=== PATIENT | male | born 1965 | race Caucasian/White ===

== ENCOUNTER 2017-06-08 16:05 | Emergency (ER) | payer SELFPAY ==
--- NOTE | 2017-06-08 18:06 | ER Document Report ---
ED Medical Screen (RME) - General Chief Complaint: Urinary Problem Stated Complaint: ABDOMINAL PAIN Time Seen by Provider: 06/08/17 18:02 Notes: Patient is saying he is having pain in the lower center abdomen. It began Monday and continues almost constantly since then. He is not nauseated or vomiting, but has had some diarrhea since the onset of the pain on Monday. He has noticed some black-looking stools, though no colin blood. No Pepto-Bismol. Has never had pain like this before. No history of kidney stones. He has not been constipated. Has never been told he has diverticulitis, colitis, regional enteritis, or any of the other gastrointestinal infectious diseases. Has not noted a fever, but has had some sweats, especially this afternoon. Only abdominal surgery was for an umbilical hernia 15 years ago. Has had coronary artery stents put in. Currently on no prescription medicines. TRAVEL OUTSIDE OF THE [place] IN LAST 30 DAYS: No - Related Data Allergies/Adverse Reactions: No Known Allergies Allergy (Verified 06/08/17 16:14) Past Medical History - Social History Chew tobacco use (# tins/day): No Frequency of alcohol use: Occasional Drug Abuse: None - Past Medical History Cardiac Medical History: Reports: Hx Coronary Artery Disease, Hx Heart Attack - 3 years ago, Hx Hypercholesterolemia Renal/ Medical History: Denies: Hx Peritoneal Dialysis Past Surgical History: Reports: Hx Cardiac Catheterization, Hx Cardiac Surgery - stent placement, Hx Coronary Stent - Immunizations Hx Diphtheria, Pertussis, Tetanus Vaccination: Yes Physical Exam - Vital signs Vitals: Temp Pulse Resp BP Pulse Ox 97.7 F 88 20 136/86 H 97 06/08/17 16:14 06/08/17 16:14 06/08/17 16:14 06/08/17 16:14 06/08/17 16:14 Course - Vital Signs Vital signs: Temp Pulse Resp BP Pulse Ox 97.7 F 88 20 136/86 H 97 06/08/17 16:14 06/08/17 16:14 06/08/17 16:14 06/08/17 16:14 06/08/17 16:14
--- NOTE | 2017-06-08 19:54 | ER Document Report ---
HPI - HPI Pain Level: 5 Notes: Patient is a 51-year-old male who presents the ED complaining of right lower quadrant pain 3 days. Patient states that the pain is sharp and constant. Patient states that he also has diarrhea and dark colored stool on occasion with intermittent nausea, no vomiting. Patient also complains of feelings of incomplete void without any burning, urgency, frequency. Patient states that he is still able to eat and drink, but his food runs right through him. Today, patient has felt feverish with occasional sweats. Past medical history significant for coronary artery disease and stent placement, and umbilical hernia repair years ago. Denies any drug allergies. Patient admits to smoking but denies any other illicit drug use. Pt reports being sexually active in a monogamous relationship without urethral discharge, testicular pain, or inguinal lumps/masses. Denies any headache, neck pain/stiffness, URI, sore throat, chest pain, palpitations, syncope, cough, shortness of breath, wheeze, dyspnea, hematuria, loss of control of bowel or bladder, back pain, numbness/ tingling, saddle anesthesia, muscle paralysis/weakness, or rash. Denies any recent illness, travel, or exposure to sick contacts. - ROS Notes: REVIEW OF SYSTEMS: CONSTITUTIONAL : Denies fever, chills, or sweats. Denies recent illness. EENT: Denies eye, ear, throat, or mouth pain or symptoms. Denies nasal or sinus congestion or discharge. Denies throat, tongue, or mouth swelling or difficulty swallowing. CARDIOVASCULAR: Denies chest pain. Denies palpitations or racing or irregular heart beat. Denies ankle edema. RESPIRATORY: Denies cough, cold, or chest congestion. Denies shortness of breath, difficulty breathing, or wheezing. GASTROINTESTINAL: see hpi GENITOURINARY: see hpi MUSCULOSKELETAL: Denies back or neck pain or stiffness. Denies joint pain or swelling. SKIN: Denies rash, lesions or sores. NEUROLOGICAL: Denies confusion or altered mental status. Denies passing out or loss of consciousness. Denies dizziness or lightheadedness. Denies headache. Denies weakness or paralysis or loss of use of either side. Denies problems with gait or speech. Denies sensory loss, numbness, or tingling. ALL OTHER SYSTEMS REVIEWED AND NEGATIVE. Dictation was performed using [employer] voice recognition software - CARDIOVASCULAR Cardiovascular: DENIES: Chest pain - REPRODUCTIVE Reproductive: DENIES: : - DERM Skin Color: Normal Past Medical History - Social History Smoking Status: Current Every Day Smoker Chew tobacco use (# tins/day): No Frequency of alcohol use: Occasional Drug Abuse: None Family History: Reviewed & Not Pertinent Patient has suicidal ideation: No Patient has homicidal ideation: No - Past Medical History Cardiac Medical History: Reports: Hx Coronary Artery Disease, Hx Heart Attack - 3 years ago, Hx Hypercholesterolemia Renal/ Medical History: Denies: Hx Peritoneal Dialysis Past Surgical History: Reports: Hx Cardiac Catheterization, Hx Cardiac Surgery - stent placement, Hx Coronary Stent - Immunizations Hx Diphtheria, Pertussis, Tetanus Vaccination: Yes Vertical Provider Document - CONSTITUTIONAL Agree With Documented VS: Yes Notes: PHYSICAL EXAMINATION: GENERAL: Well-appearing, well-nourished and in no acute distress. LUNGS: Breath sounds clear to auscultation bilaterally and equal. No wheezes rales or rhonchi. HEART: Regular rate and rhythm without murmurs, rubs, gallops. ABDOMEN/: Soft,nondistended abdomen. No guarding, no rebound. No masses appreciated. Normal bowel sounds present. No CVA tenderness bilaterally. + tenderness to the RLQ near McBurney's point. + psoas stretch. ?+ mild rosving' s. No inguinal adenopathy or hernia noted. No urethral discharge, testicular tenderness, or lesions/ulcerations noted. Rectal exam unremarkable for any tenderness, mass to the prostate. Musculoskeletal: LE's b/l: FROM to passive/active. Strength 5+/5. Extremities: No cyanosis, clubbing, or edema b/l. Peripheral pulses 2+. Capillary refill less than 3 seconds. NEUROLOGICAL: Normal speech, normal gait. Normal sensory, motor exams PSYCH: Normal mood, normal affect. SKIN: Warm, Dry, normal turgor, no rashes or lesions noted. - INFECTION CONTROL TRAVEL OUTSIDE OF THE [place] IN LAST 30 DAYS: No - RESPIRATORY O2 Sat by Pulse Oximetry: 97 Course - Re-evaluation Re-evalutation: 06/08/17 21:15 Patient is an afebrile, well-hydrated, 51-year-old male who presents the ED with abdominal pain not otherwise specified, suspect viral gastroenteritis. Vitals are stable. CBC showed a very mild leukocytosis. CMP, urine, guaiac stool, and CT scan of the abdomen were all unremarkable at this time. Physical exam is otherwise nonspecific. Zofran and Toradol given IV today. Patient was able to void today without any difficulties. I will send the patient home with loperamide and Zofran to take as needed. Conservative measures otherwise for symptoms. Low suspicion for any acute appendicitis, bowel obstruction, acute cholecystitis, perforated diverticulitis, incarcerated hernia, pancreatitis, perforated ulcer, sepsis, peritonitis, or other emergent systemic condition at this time. Patient is aware that condition can change from initial presentation and he needs to monitor symptoms closely and seek medical attention if any acute changes. Recheck with PCM in 2-3 days. Call GI to schedule an appointment for further evaluation. Return to the ED with any worsening/concerning symptoms otherwise as reviewed discharge. Patient is in agreement. - Vital Signs Vital signs: Temp Pulse Resp BP Pulse Ox 97.7 F 88 20 136/86 H 97 06/08/17 16:14 06/08/17 16:14 06/08/17 16:14 06/08/17 16:14 06/08/17 16:14 - Laboratory Result Diagrams: 06/08/17 20:00 06/08/17 20:00 Discharge - Discharge Clinical Impression: Abdominal pain Qualifiers: Abdominal location: unspecified location Qualified Code(s): R10.9 - Unspecified abdominal pain Diarrhea Qualifiers: Diarrhea type: unspecified type Qualified Code(s): R19.7 - Diarrhea, unspecified Condition: Stable Disposition: HOME, SELF-CARE Instructions: Abdominal Pain ([facility]), Antinausea Medication ([facility]), Observation for Appendicitis ([facility]), Toradol Injection ([facility]) Additional Instructions: Maintain adequate fluid/food intake Monitor urinary output BRAT diet (bananas, rice, apple, toast, etc) OTC meds as needed Take meds as directed/needed Recheck/establish with PCM in 2-3 days Call GI for a consult Call Urology for a consult Return to the ED with any worsening symptoms and/or development of fever, headache, chest pain, palpitations, syncope, shortness of breath, trouble breathing, worsening abdominal pain, n/v/d, blood in stool/urine, loss of control of bowel/bladder, urinary retention, muscle weakness/paralysis, saddle anesthesia, numbness/tingling, or other worsening symptoms that are concerning to you. Prescriptions: Loperamide HCl [Loperamide] 2 mg PO QID PRN #15 capsule PRN Reason: Ondansetron [Zofran Odt 4 mg Tablet] 1 - 2 tab PO Q4H PRN #15 tab.rapdis PRN Reason: For Nausea/Vomiting Forms: Elevated Blood Pressure, Smoking Cessation Education Referrals: [facility] [Provider Group] - Follow up as needed [facility] [Provider Group] - Follow up as needed [facility] [Provider Group] - Follow up in 3-5 days FARHAT BROOKS MD [ACTIVE STAFF] - Follow up in 3-5 days
[2017-06-08 20:27] LABS: ABSOLUTE BASOPHILS # (AUTO) 0.1 10^3/uL (0.0-0.2); ABSOLUTE EOSINOPHILS # (AUTO) 0.3 10^3/uL (0.0-0.6); ABSOLUTE LYMPHOCYTES (AUTO) 2.5 10^3/uL (0.5-4.7); ABSOLUTE MONOCYTES (AUTO) 1.1 10^3/uL (0.1-1.4); ABSOLUTE NEUT (AUTO) 7.2 10^3/uL (1.7-8.2); BASOPHILS % (AUTO) 0.6 % (0-2); EOSINOPHILS % (AUTO) 2.3 % (0-6); HEMATOCRIT 52.2 % (37.9-51.0); HEMOGLOBIN 17.6 g/dL (13.5-17.0); HGB HCT DIFFERENCE 0.6; LYMPHOCYTES % (AUTO) 22.8 % (13-45); MEAN CORPUSCULAR HEMOGLOBIN 31.6 pg (27.0-33.4); MEAN CORPUSCULAR HGB CONC 33.8 g/dL (32.0-36.0); MEAN CORPUSCULAR VOLUME 93 fl (80-97); MONOCYTES % (AUTO) 10.1 % (3-13); RED BLOOD COUNT 5.59 10^6/uL (4.35-5.55); RED CELL DISTRIBUTION WIDTH 13.3 % (11.5-14.0); SEGMENTED NEUTROPHILS % (AUTO) 64.2 % (42-78); WHITE BLOOD COUNT 11.1 10^3/uL (4.0-10.5)
[2017-06-08 20:40] LABS: APPEARANCE,URINE CLEAR; BILIRUBIN,URINE NEGATIVE (NEGATIVE); GLUCOSE, URINE NEGATIVE (NEGATIVE); KETONES,URINE NEGATIVE (NEGATIVE); LEUKOCYTE ESTERASE,URINE NEGATIVE (NEGATIVE); NITRITE,URINE NEGATIVE (NEGATIVE); PROTEIN,URINE NEGATIVE (NEGATIVE); URINE SPECIFIC GRAVITY 1.012; UROBILINOGEN,URINE NEGATIVE mg/dL (<2.0)
--- NOTE | 2017-06-08 20:40 | RADIOLOGY REPORT (SQ) ---
EXAM DESCRIPTION: CT ABD/PELVIS WITH IV ONLY COMPLETED DATE/TIME: 06/08/2017 8:29 pm REASON FOR STUDY: RLQ pain COMPARISON: 06/05/2016 TECHNIQUE: CT scan of the abdomen and pelvis performed using helical scanning technique with dynamic intravenous contrast injection. No oral contrast. Images reviewed with lung, soft tissue, and bone windows. Reconstructed coronal and sagittal MPR images reviewed. Delayed images for evaluation of the urinary system also acquired. All images stored on PACS. All CT scanners at this facility use dose modulation, iterative reconstruction, and/or weight based d osing when appropriate to reduce radiation dose to as low as reasonably achievable (ALARA). [facility]: Dose Right [facility]: CareDose [facility]: Dose Right [facility]: Teradose 4D [facility]: Lovli CONTRAST TYPE AND DOSE: contrast/concentration: Isovue 370.00 mg/ml; Total Contrast Delivered: 81.0 ml; Total Saline Delivered: 43.0 ml RENAL FUNCTION: None required. The patient is less than 50 years old. RADIATION DOSE: . LIMITATIONS: None. FINDINGS: LOWER CHEST: No significant findings. No nodules or infiltrates. LIVER: Normal size. No masses. No dilated ducts. SPLEEN: Normal size. No focal lesions. PANCREAS: No masses. No significant calcifications. No adjacent inflammation or peripancreatic fluid collections. Pancreatic duct not dilated. GALLBLADDER: No identified stones by CT criteria. No inflammatory changes to suggest cholecystitis. ADRENAL GLANDS: No significant masses or asymmetry. RIGHT KIDNEY AND URETER: No solid masses. No significant calcifications. No hydronephrosis or hyd roureter. LEFT KIDNEY AND URETER: No solid masses. No significant calcifications. No hydronephrosis or hydr oureter. AORTA AND VESSELS: No aneurysm. No dissection. Renal arteries, SMA, celiac without stenosis. RETROPERITONEUM: No retroperitoneal adenopathy, hemorrhage or masses. BOWEL AND PERITONEAL CAVITY: No masses or inflammatory changes. No free fluid or peritoneal masses. APPENDIX: Normal. PELVIS: No mass. No free fluid. Normal bladder. ABDOMINAL WALL: No masses. No hernias. BONES: No significant or acute findings. OTHER: No other significant finding. IMPRESSION: NO SIGNIFICANT OR ACUTE FINDING IN THE ABDOMEN OR PELVIS ON CT SCAN WITH IV CONTRAST. TECHNICAL DOCUMENTATION: JOB ID: [id number] Quality ID # [id number]: Final reports with documentation of one or more dose reduction techniques (e.g., Au tomated exposure control, adjustment of the mA and/or kV according to patient size, use of iterative reconstruction technique) 2010 [employer]- All Rights Reserved
[2017-06-08] MEDS ORDERED: ONDANSETRON HCL INJ/PF 4 MG/2 ML SDV IV ONE (20:48)
[2017-06-08 20:50] LABS: ALANINE AMINOTRANSFERASE 39 U/L (21-72); ALBUMIN 4.8 g/dL (3.5-5.0); ALKALINE PHOSPHATASE 69 U/L (38-126); ANION GAP 14 (5-19); ASPARTATE AMINO TRANSFERASE 21 U/L (17-59); BILIRUBIN,DIRECT 0.4 mg/dL (0.0-0.4); BILIRUBIN,TOTAL 0.7 mg/dL (0.2-1.3); BLOOD UREA NITROGEN 13 mg/dL (7-20); CALCIUM 9.7 mg/dL (8.4-10.2); CARBON DIOXIDE 24 mmol/L (22-30); CHLORIDE 103 mmol/L (98-107); GLUCOSE 105 mg/dL (75-110); LIPASE 38.6 U/L (23-300); SODIUM 140.5 mmol/L (137-145); TOTAL PROTEIN 7.8 g/dL (6.3-8.2)
[2017-06-08] MEDS ORDERED: KETOROLAC TROMETHAMINE INJ/PF 30 MG/1 ML SDV IV ONE (20:54)
[2017-06-08 22:00] VITALS: BP 126/81
== END 2017-06-08 22:16 | disposition home or self-care (01) ==
LOC: ER 16:05
DX: R10.31 Right lower quadrant pain (principal); R19.7 Diarrhea, unspecified; R19.5 Other fecal abnormalities; R39.14 Feeling of incomplete bladder emptying; R11.0 Nausea; D72.829 Elevated white blood cell count, unspecified; R61 Generalized hyperhidrosis; I25.2 Old myocardial infarction; I25.10 Atherosclerotic heart disease of native coronary artery without angina pectoris; Z98.61 Coronary angioplasty status; F17.200 Nicotine dependence, unspecified, uncomplicated
CPT/HCPCS: 99284; 96374; 96375; 36415; 83605; 83690; 85025; 82272; 80053; 81001; 74177; J1885; J2405

== ENCOUNTER 2017-10-03 03:26 | Inpatient (IN) | payer SELFPAY ==
[2017-10-03] MEDS ORDERED: KETOROLAC TROMETHAMINE INJ/PF 30 MG/1 ML SDV IV ONE (05:58)
[2017-10-03] MEDS ORDERED: NORMAL SALINE 1000 ML 1,000 ML IV ONE (05:59)
[2017-10-03 06:22] LABS: ABSOLUTE LYMPHOCYTES (AUTO) 0.7 10^3/uL (0.5-4.7); ABSOLUTE MONOCYTES (AUTO) 0.5 10^3/uL (0.1-1.4); ABSOLUTE NEUT (AUTO) 5.7 10^3/uL (1.7-8.2); BASOPHILS % (AUTO) 0.5 % (0-2); EOSINOPHILS % (AUTO) 0.5 % (0-6); HEMATOCRIT 42.6 % (37.9-51.0); HEMOGLOBIN 15.1 g/dL (13.5-17.0); HGB HCT DIFFERENCE 2.7; LYMPHOCYTES % (AUTO) 10.5 % (13-45); MEAN CORPUSCULAR HEMOGLOBIN 31.5 pg (27.0-33.4); MEAN CORPUSCULAR HGB CONC 35.6 g/dL (32.0-36.0); MEAN CORPUSCULAR VOLUME 89 fl (80-97); MONOCYTES % (AUTO) 7.5 % (3-13); RED CELL DISTRIBUTION WIDTH 12.7 % (11.5-14.0)
--- NOTE | 2017-10-03 06:23 | EKG REPORT ---
SEVERITY:- ABNORMAL ECG - SINUS TACHYCARDIA PAIRED VENTRICULAR PREMATURE COMPLEXES BORDERLINE INFERIOR Q WAVES NONSPECIFIC T ABNORMALITIES, INFERIOR LEADS APC : Confirmed by: Rafat Renae 03-Oct-2017 06:23:10
[2017-10-03 06:33] LABS: ANION GAP 11 (5-19); BLOOD UREA NITROGEN 14 mg/dL (7-20); CALCIUM 8.4 mg/dL (8.4-10.2); CARBON DIOXIDE 23 mmol/L (22-30); CHLORIDE 95 mmol/L (98-107); CREATININE RESULT 1.02 mg/dL (0.52-1.25); GLUCOSE 112 mg/dL (75-110); POTASSIUM 4.3 mmol/L (3.6-5.0); SODIUM 128.8 mmol/L (137-145)
--- NOTE | 2017-10-03 06:36 | RADIOLOGY REPORT (SQ) ---
EXAM DESCRIPTION: CHEST PA/LAT CLINICAL HISTORY: 51 years, Male, EVAL FOR PNA, SOB, FEVER COMPARISON: None. NUMBER OF VIEWS: 2 TECHNIQUE: PA and lateral. LIMITATIONS: None. FINDINGS: Adequate lung volume, clear parenchyma, normal cardiac silhouette. Intact bony thorax. IMPRESSION: No acute cardiopulmonary findings. 2011 [facility] [employer]- All Rights Reserved
--- NOTE | 2017-10-03 06:40 | ER Document Report ---
ED General - General Chief Complaint: Chest Pain Stated Complaint: CHEST PAIN Notes: Patient's complaint is "I feel like crap." He has had fever generalized body aches and weakness with decreased oral intake for several days. H also sore throat and headache. No neck pain or stiffness. He also has chest pain which comes and goes centrally, worse with coughing. No phlegm. No shortness of breath. No edema. No rash. A year ago he had viral meningitis. He has been seen in the ED a few times for chest pain. Denies exertional component to chest pain, not ripping or tearing or radiating to the back. TRAVEL OUTSIDE OF THE [place] IN LAST 30 DAYS: No - Related Data Allergies/Adverse Reactions: No Known Allergies Allergy (Verified 10/03/17 08:21) Past Medical History - Social History Smoking Status: Current Every Day Smoker Family History: Reviewed & Not Pertinent Patient has suicidal ideation: No Patient has homicidal ideation: No - Past Medical History Cardiac Medical History: Reports: Hx Coronary Artery Disease, Hx Heart Attack - 3 years ago, Hx Hypercholesterolemia Renal/ Medical History: Denies: Hx Peritoneal Dialysis Past Surgical History: Reports: Hx Cardiac Catheterization, Hx Cardiac Surgery - stent placement, Hx Coronary Stent - Immunizations Hx Diphtheria, Pertussis, Tetanus Vaccination: Yes Review of Systems - Review of Systems Notes: REVIEW OF SYSTEMS GEN: Fever chills and weakness s ENT: Denies sore throat, nasal discharge, ear pain EYES: Denies blurry vision, eye pain, discharge CV: D chest pain as above RESP: Cough no shortness of breath GI: Denies abdominal pain, nausea, vomiting, diarrhea MSK: Denies joint pain/swelling, edema, SKIN: Denies rash, skin lesions LYMPH: Denies swollen glands/lymph nodes NEURO: May, denies, focal weakness or numbness, dizziness PSYCH: Denies depression, suicidal or homicidal ideation PHYSICAL EXAMINATION General: No acute distress, well-nourished. Head: Atraumatic, normocephalic ENT: Mouth normal, oropharynx moist, no exudates or tonsillar enlargement Eyes: Conjunctiva normal, pupils equal, lids normal Neck: No JVD, supple, no guarding CVS: Normal rate, regular rhythm, no murmurs Resp: No resp distress, equal and normal breath sounds bilaterally GI: Nondistended, soft, no tenderness to palpation, no rebound or guarding Ext: No deformities, no edema, normal range of motion in upper and lower ext Back: No CVA or midline TTP Skin: No rash, warm Lymphatic: No lymphadeopathy noted Neuro: Awake, alert. Face symmetric. GCS 15. Physical Exam - Vital signs Vitals: Resp Pulse Ox 14 96 10/03/17 05:35 12 05:35 Course - Re-evaluation Re-evalutation: 10/03/17 06:38 51-year-old male presents with body aches fever weakness for a few days accompanied by headache and chest pain. Likely viral syndrome. Will rule out pneumonia with chest x-ray. Signs and symptoms not consistent with meningitis, acute coronary syndrome, aortic dissection, or other acute illness. He will be given IV fluids. Will check urine to rule out pyelonephritis. 10/03/17 06:39 Patient's EKG shows some nonspecific inferior T-wave normality's which are unchanged from prior. Also ectopy, minor. Troponin is pending. 10/03/17 07:34 Patient reassessed at 7:30 AM. He is feeling better with a heart rate of 90. No meningismus, meningitis unlikely. Labs show hyponatremia, rebleeding this with normal saline. Flu testing not indicated at this time because treatment would not change his course. Awaiting troponin, EKG is unchanged except for mild ectopy. 10/03/17 08:30 Informed by nursing at 820 to the patient is hypotensive. I came to the bedside and his pressure was 82/60, and have it measured 3 times. He feels no worse and does not have chest pain. Given this, I will treat him for sepsis. Lactic is been drawn, will get cultures start broad-spectrum antibiotics. Since he did have some chest pain I will CT anterior chest abdomen and pelvis. This is been ordered. He will be given additional IV fluids. 10/03/17 08:49 Pressures coming up with fluids. Added on flu swab. Will give antibiotics as above. Spoke with Dr. Valdovinos who accepted patient to the IMCU. 10/03/17 08:50 CT is negative you process. - Vital Signs Vital signs: Temp Pulse Resp BP Pulse Ox 98.7 F 16 104/66 95 10/03/17 08:21 10/03/17 08:16 10/03/17 07:01 10/03/17 08:16 - Laboratory Result Diagrams: 10/03/17 05:30 10/03/17 05:30 Laboratory results interpreted by me: 10/03/17 10/03/17 10/03/17 05:30 05:30 08:05 Plt Count 67 L Seg Neutrophils % 81.0 H Lymphocytes % 10.5 L Sodium 128.8 L Chloride 95 L Glucose 112 H Urine Protein 100 H Urine Blood MODERATE H Urine Urobilinogen 4.0 H - Diagnostic Test Radiology reviewed: Image reviewed, Reports reviewed - EKG Interpretation by Me EKG shows normal: Sinus rhythm, Chromo, QRS Complexes Rate: Normal Rhythm: NSR, PVC's - Unchanged T-wave inversion in the inferior lead Critical Care Note - Critical Care Note Total time excluding time spent on procedures (mins): 40 Comments: The above patient is critically ill. Not including procedures, but including direct re-evaluations, speaking with patient and/or consultants, interpreting results, and documenting, I spent the total amount of minute listed listed above on critical care time Discharge - Discharge Clinical Impression: Dehydration, Viral syndrome, Atypical chest pain Condition: Good Disposition: ADMITTED INPATIENT Admitting Provider: Hospitalist Instructions: Chest Wall Pain ([facility]), Viral Syndrome ([facility])
[2017-10-03] MEDS ORDERED: VANCOMYCIN HCL INJ 1000 MG VIAL IV ONE (08:22)
[2017-10-03 08:38] LABS: APPEARANCE,URINE SLIGHTLY-CLOUDY; BILIRUBIN,URINE NEGATIVE (NEGATIVE); GLUCOSE, URINE NEGATIVE (NEGATIVE); KETONES,URINE NEGATIVE (NEGATIVE); LEUKOCYTE ESTERASE,URINE NEGATIVE (NEGATIVE); NITRITE,URINE NEGATIVE (NEGATIVE); PROTEIN,URINE 100 mg/dL (NEGATIVE); URINE SPECIFIC GRAVITY 1.026
[2017-10-03 08:45] LABS: BACTERIA,URINE TRACE /HPF; RBC,URINE RARE /HPF
[2017-10-03] MEDS: NORMAL SALINE 1000 ML 1,000 ML IV PRN ×4 (08:56→15:17)
--- NOTE | 2017-10-03 10:26 | RADIOLOGY REPORT (SQ) ---
EXAM DESCRIPTION: CTA CHEST COMPLETED DATE/TIME: 10/03/2017 10:05 am REASON FOR STUDY: CP hypotension /dissection/aneuris,m COMPARISON: None. TECHNIQUE: CT scan of the chest performed using helical scanning technique with dynamic intravenous contrast injection. Images reviewed with lung, soft tissue and bone windows. Reconstructed coronal and sagittal MPR images reviewed. Additional 3 dimensional post-processing performed to develop Maximal Intensity Projection images (TN P). All images stored on PACS. All CT scanners at this facility use dose modulation, iterative reconstruction, and/or weight based d osing when appropriate to reduce radiation dose to as low as reasonably achievable (ALARA). [facility]: Dose Right [facility]: CareDose [facility]: Dose Right [facility]: Teradose 4D [facility]: [employer] CONTRAST TYPE AND DOSE: contrast/concentration: Isovue 370.00 mg/ml; Total Contrast Delivered: 73.0 ml; Total Saline Delivered: 70.0 ml Contrast bolus optimized for the aorta. Not diagnostic for the pulmonary arteries. RENAL FUNCTION: BUN 14 creatinine 1.02. RADIATION DOSE: . LIMITATIONS: None. FINDINGS: LUNGS AND PLEURA: No masses, infiltrates, pneumothorax. No pleural effusions, calcificati ons. AORTA AND GREAT VESSELS: No aneurysm or dissection. HEART: No pericardial effusion. No significant coronary artery calcifications. PULMONARY ARTERIES: Contrast bolus not optimized for the pulmonary arteries. HILAR AND MEDIASTINAL STRUCTURES: No identified masses or abnormal nodes. HARDWARE: None in the chest. UPPER ABDOMEN: No significant findings. Limited exam. THYROID AND OTHER SOFT TISSUES: No masses. No adenopathy. BONES: No acute or significant finding. 3D MIPS: Confirm above findings. OTHER: No other significant finding. IMPRESSION: NORMAL CTA OF THE CHEST. NO THORACIC AORTIC ANEURYSM OR DISSECTION. COMMENT: Quality ID # 436: Final reports with documentation of one or more dose reduction techniques (e.g., Automated exposure control, adjustment of the mA and/or kV according to patient size, use of iterative reconstruction technique) TECHNICAL DOCUMENTATION: JOB ID: [id number]- All Rights Reserved
--- NOTE | 2017-10-03 10:31 | RADIOLOGY REPORT (SQ) ---
EXAM DESCRIPTION: CTA ABDOMEN/PELVIS W WO COMPLETED DATE/TIME: 10/03/2017 10:05 am REASON FOR STUDY: cp hypotension COMPARISON: None. TECHNIQUE: CT scan of the abdomen and pelvis performed with intravenous contrast using helical scann ing technique with dynamic intravenous contrast injection. Images reviewed with lung, soft tissue, an d bone windows. Reconstructed coronal and sagittal MPR images reviewed. All images stored on PACS. Advanced 3D imaging as volume rendering, MIPS, SSD performed? yes All CT scanners at this facility use dose modulation, iterative reconstruction, and/or weight based d osing when appropriate to reduce radiation dose to as low as reasonably achievable (ALARA). [facility]: Dose Right [facility]: CareDose [facility]: Dose Right [facility]: Teradose 4D [facility]: Xanodyne CONTRAST TYPE AND DOSE: 73 mL Isovue 370- low osmolar. RENAL FUNCTION: BUN 14 creatinine 1.02. LIMITATIONS: None. FINDINGS: NON-CONTRASTED IMAGING: No significant renal or bladder calcifications. No other significa nt organ calcifications. POST-CONTRAST IMAGING: AORTA AND VESSELS: No aneurysm. No dissection. Renal arteries, SMA, EPHRAIM, and celiac patent without st enosis. LUNG BASES: No significant findings. No nodules or infiltrates. LIVER: Normal size. No masses or dilated ducts. SPLEEN: Normal size. No focal lesions. PANCREAS: No masses. No significant calcifications. No adjacent inflammation or peripancreatic fluid collections. Pancreatic duct not dilated. GALLBLADDER: No identified stones by CT criteria. No inflammatory changes to suggest cholecystitis. ADRENAL GLANDS: No significant masses or asymmetry. RIGHT KIDNEY AND URETER: No mass, calculi or urinary tract obstruction. LEFT KIDNEY AND URETER: No mass, calculi or urinary tract obstruction. RETROPERITONEUM: No retroperitoneal adenopathy, hemorrhage or masses. BOWEL AND PERITONEAL CAVITY: No masses or inflammatory changes. No free fluid or peritoneal masses. APPENDIX: Normal. ABDOMINAL WALL: No masses. No hernias. BONY STRUCTURES: No significant or acute findings. 3-D IMAGING: Confirms the above findings. OTHER: No other significant finding. IMPRESSION: NO ABDOMINAL AORTIC ANEURYSM, DISSECTION OR SIGNIFICANT STENOSIS. NO SIGNIFICANT FINDING S IN THE ABDOMEN OR PELVIS. TECHNICAL DOCUMENTATION: JOB ID: [id number] Quality ID # [id number]: Final reports with documentation of one or more dose reduction techniques (e.g., Au tomated exposure control, adjustment of the mA and/or kV according to patient size, use of iterative reconstruction technique) 2010 [employer] ? [employer]- All Rights Reserved
[2017-10-03] MEDS ORDERED: IPRATROPIUM/ALBUTEROL 0.5-2.5 MG/3 ML AMPUL NEB PRN (12:32)
[2017-10-03] MEDS ORDERED: ZOLPIDEM TARTRATE 5 MG TABLET PO PRN (12:37)
[2017-10-03] MEDS ORDERED: ONDANSETRON HCL INJ/PF 4 MG/2 ML SDV IV PRN (12:37)
[2017-10-03] MEDS: ACETAMINOPHEN 325 MG TABLET PO PRN ×2 (15:16→23:41)
--- NOTE | 2017-10-03 15:45 | PDOC H&P ---
History of Present Illness Admission Date/PCP: 10/03/17 09:49 Patient complains of: Fever, malaise, nausea, atypical chest pain History of Present Illness: SAMI ROGERS is a 51 year old male with a past medical history significant for NM with stenting 3 years ago, hyperlipidemia, tobacco and alcohol dependence who presents to the emergency department with a report of viral syndrome 6 days. Additionally, he complains of atypical chest pain that is intermittent and was noted to worsen with Nyquil, but does not appreciably worsen with activity or resolve with rest. He denies radiation of the pain and it is not associated with sommers, dizziness, dyspnea, diaphoresis or nausea. He does report a constellation of symptoms including fever (TMax 104), malaise, fatigue, anorexia, nausea, post-tussive emesis, and muscle cramps. He has tried [id number] cold remedies without improvement in symptoms. He denies sick contacts and has not traveled recently. He does not get the flu vaccine. Initial evaluation in the emergency department is essentially unremarkable except for hyponatremia, mild tachycardia and hypotension (90s/60s) that has been responsive to IV fluids. He is referred to the hospitalist service for admission under sepsis protocols. Past Medical History Cardiac Medical History: Reports: Coronary Artery Disease, Myocardial Infarction - 3 years ago, Hyperlipidema Pulmonary Medical History: Reports: None EENT Medical History: Reports: None Neurological Medical History: Reports: None Endocrine Medical History: Reports: None Renal/ Medical History: Reports: None Malignancy Medical History: Reports: None GI Medical History: Reports: None Musculoskeltal Medical History: Reports: None Skin Medical History: Reports: None Psychiatric Medical History: Reports: Alcohol Dependency, Tobacco Dependency Traumatic Medical History: Reports: None Hematology: Reports: None Infectious Medical History: Reports: None Past Surgical History Past Surgical History: Reports: Cardiac Catheterization, Coronary Stent Social History Information Source: Patient, Relative Lives with: Spouse/Significant other Smoking Status: Current Every Day Smoker Cigarettes Packs Per Day: 20 Frequency of Alcohol Use: Heavy Amount of Alcoholic Beverages Per Day: 2 beers daily Hx Recreational Drug Use: No Hx Prescription Drug Abuse: No - Advance Directive Resuscitation Status: Full Code Family History Family History: Reviewed & Not Pertinent Parental Family History Reviewed: Yes Children Family History Reviewed: Yes Sibling(s) Family History Reviewed.: Yes Medication/Allergy Home Medications: Aspirin [Aspirin EC] 81 mg PO DAILY 10/03/17 Allergies/Adverse Reactions: No Known Allergies Allergy (Verified 10/03/17 08:21) Review of Systems Constitutional: PRESENT: anorexia, fatigue, fever(s), headache(s). ABSENT: chills, weight gain, weight loss Eyes: ABSENT: visual disturbances Ears: ABSENT: hearing changes Cardiovascular: PRESENT: chest pain. ABSENT: dyspnea on exertion, edema, orthropnea, palpitations Respiratory: PRESENT: cough. ABSENT: hemoptysis Gastrointestinal: PRESENT: nausea. ABSENT: abdominal pain, constipation, diarrhea, hematemesis, hematochezia, vomiting Genitourinary: ABSENT: dysuria, hematuria Musculoskeletal: PRESENT: other - muscle cramps BLE. ABSENT: joint swelling Integumentary: ABSENT: rash, wounds Neurological: ABSENT: abnormal gait, abnormal speech, confusion, dizziness, focal weakness, syncope Psychiatric: ABSENT: anxiety, depression, homidical ideation, suicidal ideation Endocrine: ABSENT: cold intolerance, heat intolerance, polydipsia, polyuria Hematologic/Lymphatic: ABSENT: easy bleeding, easy bruising Physical Exam Vital Signs: Temp Pulse Resp BP Pulse Ox 103.1 F H 18 110/67 100 10/03/17 15:10 10/03/17 12:01 10/03/17 12:01 10/03/17 12:01 General appearance: PRESENT: no acute distress, well-developed, well-nourished, other - Acutely ill Head exam: PRESENT: atraumatic, normocephalic Eye exam: PRESENT: conjunctiva pink, EOMI, PERRLA. ABSENT: scleral icterus Ear exam: PRESENT: normal external ear exam Mouth exam: PRESENT: moist, tongue midline Neck exam: ABSENT: carotid bruit, JVD, lymphadenopathy, thyromegaly Respiratory exam: PRESENT: clear to auscultation ari, symmetrical, unlabored. ABSENT: rales, rhonchi, wheezes Cardiovascular exam: PRESENT: RRR, tachycardia. ABSENT: diastolic murmur, rubs , systolic murmur Pulses: PRESENT: normal dorsalis pedis pul Vascular exam: PRESENT: normal capillary refill GI/Abdominal exam: PRESENT: normal bowel sounds, soft. ABSENT: distended, guarding, mass, organolmegaly, rebound, tenderness Rectal exam: PRESENT: deferred Extremities exam: PRESENT: full ROM. ABSENT: calf tenderness, clubbing, pedal edema Neurological exam: PRESENT: alert, awake, oriented to person, oriented to place , oriented to time, oriented to situation, CN II-XII grossly intact. ABSENT: motor sensory deficit Psychiatric exam: PRESENT: appropriate affect, normal mood. ABSENT: homicidal ideation, suicidal ideation Skin exam: PRESENT: dry, intact, warm. ABSENT: cyanosis, rash Results Laboratory Results: 10/03/17 13:57 Magnesium 1.9 10/03/17 13:57 Troponin I < 0.012 Impressions: Chest X-Ray 10/03/17 05:58 IMPRESSION: No acute cardiopulmonary findings. 2010 [employer]- All Rights Reserved Abdomen/Pelvis CTA 10/03/17 08:23 IMPRESSION: NO ABDOMINAL AORTIC ANEURYSM, DISSECTION OR SIGNIFICANT STENOSIS. NO SIGNIFICANT FINDINGS IN THE ABDOMEN OR PELVIS. Chest/Abdomen CTA 10/03/17 08:23 IMPRESSION: NORMAL CTA OF THE CHEST. NO THORACIC AORTIC ANEURYSM OR DISSECTION. Assessment & Plan - Diagnosis (1) SIRS (systemic inflammatory response syndrome) Is this a current diagnosis for this admission?: Yes Plan: Patient is admitted with fever, tachycardia, hypotension and constellation of symptoms suggestive of viral illness; although at this time I cannot definitively rule out a bacterial source for his illness. Laboratory workup is unrevealing other than hyponatremia presumed to be related to dehydration. Blood and urine cultures are pending. He will be admitted to [facility] on continuous cardiac telemetry and treated under sepsis protocol. He will receive IV fluid resuscitation and, although I believe his hypotension to be related to dehydration in the setting of a viral illness, he will be placed on Rocephin empirically for coverage of both pulmonary and urinary sources of infection. He did receive 1 g of vancomycin in the emergency department. Will de-escalate antibiotic therapy as cultures result. (2) Atypical chest pain Is this a current diagnosis for this admission?: Yes Plan: Patient with atypical chest pain in the setting of a viral syndrome. Although he does have risk factors for coronary artery syndrome (previous NM, obesity, tobacco use, hyperlipidemia) I do not suspect his pain to be cardiac in nature. Will obtain serial troponins for completion and place patient on cardiac telemetry. (3) Dehydration Plan: Patient is tachycardic with hypotension after report of 6 days of elevated temperature and poor p.o. intake. He will receive IV fluid resuscitation and be encouraged to drink clear fluids. He will be provided antiemetics as needed. (4) Hyponatremia Is this a current diagnosis for this admission?: Yes Plan: Presumed to be secondary to dehydration. Will rehydrate with IV fluids and continue to monitor BMP. (5) Viral syndrome Is this a current diagnosis for this admission?: Yes Plan: Influenza A/B negative. Remaining plan as above. (6) CAD (coronary artery disease) Is this a current diagnosis for this admission?: Yes Plan: Patient with known coronary artery disease and previous NM requiring stent placement. He is not currently on home cholesterol medications and the last lipid panel available is from 2014. Obtain a fasting lipid panel in the morning and place the patient on low-dose Lipitor nightly. Continue to be aspirin. (7) HLD (hyperlipidemia) Plan: As above. (8) Hypotension Is this a current diagnosis for this admission?: Yes Plan: Secondary to dehydration, though it remains possible that pt has a bacterial infection resulting in SIRS/Sepsis. Plan as above. Blood pressure has responded to fluid bolus; will continue IVF and monitor. - Time Time Spent: 50 to 70 Minutes Smoking Cessation Education: 3 to 10 minutes Medications reviewed and adjusted accordingly: Yes - Inpatient Certification Based on my medical assessment, after consideration of the patient's comorbidities, presenting symptoms, or acuity I expect that the services needed warrant INPATIENT care.: Yes I certify that my determination is in accordance with my understanding of Medicare's requirements for reasonable and necessary INPATIENT services [42 CFR 412.3e].: Yes Medical Necessity: Need For IV Fluids, Need For Continuous Telemetry Monitoring
[2017-10-03 15:58] LABS: ANION GAP 8 (5-19); BLOOD UREA NITROGEN 11 mg/dL (7-20); CALCIUM 7.4 mg/dL (8.4-10.2); CARBON DIOXIDE 21 mmol/L (22-30); CHLORIDE 101 mmol/L (98-107); CREATININE RESULT 0.87 mg/dL (0.52-1.25); GLUCOSE 122 mg/dL (75-110); POTASSIUM 4.1 mmol/L (3.6-5.0)
[2017-10-03] MEDS: PANTOPRAZOLE SODIUM 40 MG VIAL IV SCH (23:01)
[2017-10-03] MEDS: ATORVASTATIN CALCIUM 10 MG TABLET PO SCH (23:01)
[2017-10-04] MEDS: NORMAL SALINE 1000 ML 1,000 ML IV PRN (01:30)
[2017-10-04 02:41] LABS: CHOLESTEROL 114.36 mg/dL (0-200); Direct HDL 13 mg/dL (>40); TRIGLYCERIDES 331 mg/dL (<150)
[2017-10-04 02:42] LABS: ANION GAP 8 (5-19); BLOOD UREA NITROGEN 10 mg/dL (7-20); CALCIUM 7.5 mg/dL (8.4-10.2); CARBON DIOXIDE 20 mmol/L (22-30); CHLORIDE 109 mmol/L (98-107); CREATININE RESULT 0.79 mg/dL (0.52-1.25); GLUCOSE 104 mg/dL (75-110); SODIUM 136.7 mmol/L (137-145)
[2017-10-04 02:52] LABS: DIRECT LDL 57 mg/dL (<100)
[2017-10-04 03:00] LABS: VLDL CHOLESTEROL 66.2 mg/dL (10-31)
[2017-10-04 03:02] LABS: HEMATOCRIT 35.4 % (37.9-51.0); HGB HCT DIFFERENCE 2.1; MEAN CORPUSCULAR HEMOGLOBIN 31.2 pg (27.0-33.4); MEAN CORPUSCULAR HGB CONC 35.2 g/dL (32.0-36.0); MEAN CORPUSCULAR VOLUME 89 fl (80-97); RED BLOOD COUNT 3.99 10^6/uL (4.35-5.55); RED CELL DISTRIBUTION WIDTH 12.9 % (11.5-14.0); WHITE BLOOD COUNT 5.6 10^3/uL (4.0-10.5)
[2017-10-04 03:03] LABS: HEMOGLOBIN 12.5 g/dL (13.5-17.0)
--- NOTE | 2017-10-04 07:16 | EKG REPORT ---
SEVERITY:- ABNORMAL ECG - SINUS RHYTHM BORDERLINE INFERIOR Q WAVES NONSPECIFIC T ABNORMALITIES, INFERIOR LEADS : Confirmed by: Rafat Renae 04-Oct-2017 17:45:53
[2017-10-04] MEDS: ASPIRIN 81 MG TABLET, ENT COATED PO SCH (09:20)
[2017-10-04] MEDS: ENOXAPARIN SODIUM INJ 40 MG/0.4 ML DISP.SYRIN SUBCUT SCH (09:20)
[2017-10-04] MEDS: CEFTRIAXONE 1 GM/D5W RTU 1 GM/50 ML RTUPB IV SCH (09:21)
[2017-10-04] MEDS: PANTOPRAZOLE SODIUM 40 MG VIAL IV SCH ×2 (09:21→21:55)
[2017-10-04] MEDS: RINGERS SOLUTION,LACTATED 1,000 ML IV PRN ×2 (09:26→22:07)
--- NOTE | 2017-10-04 11:45 | RADIOLOGY REPORT (SQ) ---
EXAM DESCRIPTION: CT FACIAL AREA WITHOUT COMPLETED DATE/TIME: 10/04/2017 11:29 am REASON FOR STUDY: headache, fever COMPARISON: None. TECHNIQUE: Noncontrasted images through the facial bones and orbits windowed for bone and soft tissu e. Additional coronal and sagittal reconstructed images reviewed. All images stored on PACS. All CT scanners at this facility use dose modulation, iterative reconstruction, and/or weight based d osing when appropriate to reduce radiation dose to as low as reasonably achievable (ALARA). [facility]: Dose Right [facility]: CareDose [facility]: Dose Right [facility]: Teradose 4D [facility]: [employer] RADIATION DOSE: mGy. LIMITATIONS: None. FINDINGS: FACIAL BONES: No fracture or bone lesion. ORBITS: Intact. No fracture. Symmetric intact globes and retroorbital soft tissues. PARANASAL SINUSES: Clear. No significant mucosal thickening, mass or fluid. No nasal polyps. Maxill tran sinus outlets are patent. SOFT TISSUES: No mass or edema. INFERIOR BRAIN: Limited view. No acute findings. OTHER: No other significant finding. IMPRESSION: NO ACUTE FINDINGS. TECHNICAL DOCUMENTATION: JOB ID: [id number] Quality ID # [id number]: Final reports with documentation of one or more dose reduction techniques (e.g., Au tomated exposure control, adjustment of the mA and/or kV according to patient size, use of iterative reconstruction technique) 2010 [employer]- All Rights Reserved
[2017-10-04] MEDS: KETOROLAC TROMETHAMINE INJ/PF 30 MG/1 ML SDV IV PRN ×2 (12:35→21:55)
--- NOTE | 2017-10-04 18:03 | PDOC PROGRESS REPORT ---
Subjective Progress Note for:: 10/04/17 Subjective:: Patient is seen today for as a follow-up for seizures, atypical chest pain, dehydration, hypotension. He is seen while still in the emergency department waiting on a room assignment. Resting comfortably in bed, on room air, and appears well. He reports that he continued to run a low-grade fever through the night that responded well to Tylenol. He states that his muscle cramps and chest pain have improved significantly and that his nausea has resolved. He is happy to report a return of his appetite and that he has tolerated his meals well. He does continue to have a frontal headache that is worsened with palpation, sudden movements such as a cough or sneeze, and bending over. He does report nasal congestion and rhinorrhea. He denies a sore throat. The patient states that he had similar symptoms approximately 3 weeks ago which he treated with leftover amoxicillin taking an unknown dose for approximately 4 days. He states that he began to feel better and so stopped taking the antibiotic. Overall, he states that he is feeling much better, however continues to have generalized fatigue and myalgias. Has no other questions or concerns at this time. Reason For Visit: SEPSIS,DEHYDRATION,HYPONATREMIA Physical Exam Vital Signs: Temp Pulse Resp BP Pulse Ox 98.7 F 85 33 H 102/70 96 10/04/17 09:13 10/04/17 09:01 10/04/17 16:01 10/04/17 16:00 10/04/17 16:01 General appearance: PRESENT: no acute distress, well-developed, well-nourished, other - Overweight Head exam: PRESENT: atraumatic, normocephalic Eye exam: PRESENT: conjunctiva pink, EOMI, PERRLA. ABSENT: scleral icterus Ear exam: PRESENT: normal external ear exam, TM's normal bilaterally. ABSENT: bleeding, drainage Mouth exam: PRESENT: moist, tongue midline Throat exam: PRESENT: post pharyngeal erythema. ABSENT: tonsillar erythema, tonsillar exudate, tonsillogmegaly Neck exam: ABSENT: carotid bruit, JVD, lymphadenopathy, thyromegaly Respiratory exam: PRESENT: clear to auscultation ari, symmetrical, unlabored. ABSENT: rales, rhonchi, wheezes Cardiovascular exam: PRESENT: RRR. ABSENT: diastolic murmur, rubs, systolic murmur Pulses: PRESENT: normal dorsalis pedis pul Vascular exam: PRESENT: normal capillary refill GI/Abdominal exam: PRESENT: normal bowel sounds, soft. ABSENT: distended, guarding, mass, organolmegaly, rebound, tenderness Rectal exam: PRESENT: deferred Extremities exam: PRESENT: full ROM. ABSENT: calf tenderness, clubbing, pedal edema Neurological exam: PRESENT: alert, awake, oriented to person, oriented to place , oriented to time, oriented to situation, CN II-XII grossly intact. ABSENT: motor sensory deficit Psychiatric exam: PRESENT: appropriate affect, normal mood. ABSENT: homicidal ideation, suicidal ideation Skin exam: PRESENT: dry, intact, warm. ABSENT: cyanosis, rash Results Laboratory Results: 10/04/17 02:10 10/04/17 02:10 10/04/17 10/04/17 10/04/17 02:10 02:10 02:10 WBC 5.6 RBC 3.99 L Hgb 12.5 L D Hct 35.4 L MCV 89 MCH 31.2 MCHC 35.2 RDW 12.9 Plt Count 65 L Sodium 136.7 L Potassium 4.0 Chloride 109 H Carbon Dioxide 20 L Anion Gap 8 BUN 10 Creatinine 0.79 Est GFR ( Amer) > 60 Est GFR (Non-Af Amer) > 60 Glucose 104 Calcium 7.5 L Triglycerides 331 H Cholesterol 114.36 LDL Cholesterol Direct 57 VLDL Cholesterol 66.2 H HDL Cholesterol 13 L 10/03/17 13:35 Sputum Gram Stain - Final 10/03/17 13:35 Sputum Sputum Culture - Final 10/03/17 10/03/17 10/04/17 13:57 20:05 02:10 Troponin I < 0.012 < 0.012 < 0.012 Impressions: Chest X-Ray 10/03/17 05:58 IMPRESSION: No acute cardiopulmonary findings. 2010 [employer]- All Rights Reserved Abdomen/Pelvis CTA 10/03/17 08:23 IMPRESSION: NO ABDOMINAL AORTIC ANEURYSM, DISSECTION OR SIGNIFICANT STENOSIS. NO SIGNIFICANT FINDINGS IN THE ABDOMEN OR PELVIS. Chest/Abdomen CTA 10/03/17 08:23 IMPRESSION: NORMAL CTA OF THE CHEST. NO THORACIC AORTIC ANEURYSM OR DISSECTION. Facial Bones CT 10/04/17 00:00 IMPRESSION: NO ACUTE FINDINGS. Assessment & Plan - Diagnosis (1) SIRS (systemic inflammatory response syndrome) Is this a current diagnosis for this admission?: Yes Plan: Improving. Patient is admitted with fever, tachycardia, hypotension and constellation of symptoms suggestive of viral illness; although at this time I cannot definitively rule out a bacterial source for his illness. Laboratory workup is again unrevealing other than hyponatremia, which is gradually improving. Blood and urine cultures: Growth at 24 hours He is admitted to [facility] on continuous cardiac telemetry and treated under sepsis protocol, although he remains in the emergency department secondary to placement needs. We will continue maintenance IV fluids. The patient's blood pressure and heart rate have improved and are now acceptable. To continue on IV Rocephin pending results of cultures. Will discontinue tomorrow if there is no growth at 48 hours. (2) Atypical chest pain Is this a current diagnosis for this admission?: Yes Plan: Improved. Patient with atypical chest pain in the setting of a viral syndrome. Although he does have risk factors for coronary artery syndrome (previous CT, obesity, tobacco use, hyperlipidemia) I do not suspect his pain to be cardiac in nature. Serial troponins were negative. He will remain on cardiac telemetry. Continue ASA and atorvastatin. (3) Dehydration Plan: Significantly improved. The patient received a total of 4 L IV fluid bolus followed by maintenance fluids. His blood pressure and heart rate have responded appropriately and he is feeling much better. He will continue to receive IV fluid resuscitation and be encouraged to drink clear fluids. He will be provided antiemetics as needed. (4) Hyponatremia Is this a current diagnosis for this admission?: Yes Plan: Gradually improving; same to have been secondary to dehydration. Sodium up to 136.7 from 128.8. Will rehydrate with IV fluids and continue to monitor BMP. (5) Viral syndrome Is this a current diagnosis for this admission?: Yes Plan: Influenza A/B negative. Remaining plan as above. (6) CAD (coronary artery disease) Is this a current diagnosis for this admission?: Yes Plan: Patient with known coronary artery disease and previous CT requiring stent placement. Lipid panel obtained this morning: LDL 57, HDL 13, triglycerides 331. The patient is known to have heavy alcohol intake may partially account for his hypertriglyceridemia. He has been placed on atorvastatin and a cardiac diet. Continue aspirin (7) HLD (hyperlipidemia) Plan: As above. (8) Hypotension Is this a current diagnosis for this admission?: Yes Plan: Resolved. Secondary to dehydration, though it remains possible that pt has a bacterial infection resulting in SIRS/Sepsis. Plan as above. Blood pressure has responded to fluid bolus; will continue IVF and monitor. (9) Headache Is this a current diagnosis for this admission?: Yes Plan: Patient with frontal headache and symptomatology suggestive of sinusitis. Given the severity of his illness, a facial CT was obtained and ruled out sinus abscess. Will treat with as needed Tylenol and IV Toradol. - Time Time Spent with patient: 35 or more minutes Medications reviewed and adjusted accordingly: Yes Anticipated discharge: Home Within: within 36 hours - Inpatient Certification Based on my medical assessment, after consideration of the patient's comorbidities, presenting symptoms, or acuity I expect that the services needed warrant INPATIENT care.: Yes I certify that my determination is in accordance with my understanding of Medicare's requirements for reasonable and necessary INPATIENT services [42 CFR 412.3e].: Yes Medical Necessity: Need For IV Fluids
[2017-10-04] MEDS ORDERED: INFLUENZA ADLT QUAD (36MOS+) 2017-18 VAC 0.5 ML SYR IM PRN (18:57)
[2017-10-04] MEDS: ATORVASTATIN CALCIUM 10 MG TABLET PO SCH (21:55)
[2017-10-05] MEDS: KETOROLAC TROMETHAMINE INJ/PF 30 MG/1 ML SDV IV PRN (05:39)
[2017-10-05 05:50] LABS: HEMOGLOBIN 11.7 g/dL (13.5-17.0); HGB HCT DIFFERENCE 2.1; MEAN CORPUSCULAR HEMOGLOBIN 31.4 pg (27.0-33.4); MEAN CORPUSCULAR HGB CONC 35.6 g/dL (32.0-36.0); MEAN CORPUSCULAR VOLUME 88 fl (80-97); RED BLOOD COUNT 3.74 10^6/uL (4.35-5.55); RED CELL DISTRIBUTION WIDTH 13.1 % (11.5-14.0); WHITE BLOOD COUNT 8.3 10^3/uL (4.0-10.5)
[2017-10-05 06:09] LABS: ANION GAP 9 (5-19); BLOOD UREA NITROGEN 8 mg/dL (7-20); CARBON DIOXIDE 21 mmol/L (22-30); CHLORIDE 104 mmol/L (98-107); CREATININE RESULT 0.82 mg/dL (0.52-1.25); GLUCOSE 104 mg/dL (75-110); POTASSIUM 3.8 mmol/L (3.6-5.0); SODIUM 134.2 mmol/L (137-145)
[2017-10-05] MEDS ORDERED: ONDANSETRON HCL INJ/PF 4 MG/2 ML SDV IV PRN (07:30)
[2017-10-05] MEDS: NORMAL SALINE 1000 ML 1,000 ML IV PRN ×2 (07:45→20:10)
[2017-10-05] MEDS: ASPIRIN 81 MG TABLET, ENT COATED PO SCH (10:36)
[2017-10-05] MEDS: ENOXAPARIN SODIUM INJ 40 MG/0.4 ML DISP.SYRIN SUBCUT SCH (10:36)
[2017-10-05] MEDS: PANTOPRAZOLE SODIUM 40 MG VIAL IV SCH ×2 (10:37→21:42)
[2017-10-05] MEDS: CEFTRIAXONE 1 GM/D5W RTU 1 GM/50 ML RTUPB IV SCH (10:37)
--- NOTE | 2017-10-05 11:28 | Physician Advisory Note ---
Physician Advisor ProgressNote .: [facility] I have reviewed the medical record for this patient. Physician Advisor Statement: 1. Please make it clear in documentation whether you believe pt had A. "possible sepsis, ruled out" - or - B. "probable sepsis, likely due to ____, evidenced by , present on adm". - Potential evidence: acute thrombocytopenia of 67, MAP as low as 67, BP as low as 82/60 in ED, tachycardia, tachypnea, fever. - Non-supporting evidence: "No Acute Distress" per ED dr & admitting dr notes - Bottom line: do you truly believe pt was clinically sick enough initially to be septic? 2. CP: please specify most likely cause. Thanks for your help! CK
--- NOTE | 2017-10-05 15:22 | PDOC PROGRESS REPORT ---
Subjective Progress Note for:: 10/05/17 Subjective:: Patient is seen today for as a follow-up for sepsis, atypical chest pain, dehydration, hypotension. He is seen resting in bed comfortably with his family members present. He reports that he has felt fever and chills overnight and is currently diaphoretic. He reports a continued headache, most severe to the frontal sinus area, it is worsened by sudden movements and palpation. He does endorse a slight tremor that is intermittent. He denies anxiety, agitation, visual or auditory hallucinations, skin irritation, nausea and vomiting, and diarrhea. He does state that he feels much improved as compared to the day of admission, however, remains fatigued with myalgias. He has no other questions or concerns at this time. Reason For Visit: SEPSIS,DEHYDRATION,HYPONATREMIA Physical Exam Vital Signs: Temp Pulse Resp BP Pulse Ox 97.8 F 89 16 118/75 97 10/05/17 11:39 10/05/17 14:00 10/05/17 11:39 10/05/17 11:39 10/05/17 11:39 Intake & Output 10/04/17 10/05/17 10/06/17 06:59 06:59 06:59 Intake Total 1670 Balance 1670 General appearance: PRESENT: no acute distress, well-developed, well-nourished, other - Overweight Head exam: PRESENT: atraumatic, normocephalic Eye exam: PRESENT: conjunctiva pink, EOMI, PERRLA. ABSENT: scleral icterus Ear exam: PRESENT: normal external ear exam Mouth exam: PRESENT: moist, tongue midline Neck exam: ABSENT: carotid bruit, JVD, lymphadenopathy, thyromegaly Respiratory exam: PRESENT: clear to auscultation ari, symmetrical, unlabored. ABSENT: rales, rhonchi, wheezes Cardiovascular exam: PRESENT: RRR, +S1, +S2. ABSENT: diastolic murmur, rubs, systolic murmur Pulses: PRESENT: normal dorsalis pedis pul Vascular exam: PRESENT: normal capillary refill GI/Abdominal exam: PRESENT: normal bowel sounds, soft. ABSENT: distended, guarding, mass, organolmegaly, rebound, tenderness Rectal exam: PRESENT: deferred Extremities exam: PRESENT: full ROM. ABSENT: calf tenderness, clubbing, pedal edema Neurological exam: PRESENT: alert, awake, oriented to person, oriented to place , oriented to time, oriented to situation, CN II-XII grossly intact. ABSENT: motor sensory deficit Psychiatric exam: PRESENT: appropriate affect, normal mood. ABSENT: homicidal ideation, suicidal ideation Skin exam: PRESENT: intact, warm, other - Flushed and diaphoretic. ABSENT: cyanosis, rash Results Laboratory Results: 10/05/17 05:31 10/05/17 05:31 10/05/17 10/05/17 05:31 05:31 WBC 8.3 RBC 3.74 L Hgb 11.7 L Hct 33.0 L MCV 88 MCH 31.4 MCHC 35.6 RDW 13.1 Plt Count 112 L Sodium 134.2 L Potassium 3.8 Chloride 104 Carbon Dioxide 21 L Anion Gap 9 BUN 8 Creatinine 0.82 Est GFR ( Amer) > 60 Est GFR (Non-Af Amer) > 60 Glucose 104 Calcium 8.0 L 10/03/17 13:35 Sputum Gram Stain - Final 10/03/17 13:35 Sputum Sputum Culture - Final 10/03/17 10/03/17 10/04/17 13:57 20:05 02:10 Troponin I < 0.012 < 0.012 < 0.012 Impressions: Chest X-Ray 10/03/17 05:58 IMPRESSION: No acute cardiopulmonary findings. 2010 [email or web address]- All Rights Reserved Abdomen/Pelvis CTA 10/03/17 08:23 IMPRESSION: NO ABDOMINAL AORTIC ANEURYSM, DISSECTION OR SIGNIFICANT STENOSIS. NO SIGNIFICANT FINDINGS IN THE ABDOMEN OR PELVIS. Chest/Abdomen CTA 10/03/17 08:23 IMPRESSION: NORMAL CTA OF THE CHEST. NO THORACIC AORTIC ANEURYSM OR DISSECTION. Facial Bones CT 10/04/17 00:00 IMPRESSION: NO ACUTE FINDINGS. Assessment & Plan - Diagnosis (1) Sepsis Qualifiers: Sepsis type: sepsis due to unspecified organism Qualified Code(s): A41.9 - Sepsis, unspecified organism Plan: Improving. Patient presented with sepsis as evidenced by fever, tachycardia, hypotension (83/60), and thrombocytopenia. Initial workup was unrevealing, with a normal WBC count, and a constellation of symptoms primarily suggestive of a viral illness. Despite this, the severity of his sepsis prompted me to empirically start him on Rocephin. Blood and urine cultures: Growth at 48 hours He was treated with aggressive IV fluid resuscitation with improvement in his blood pressure. His fevers have trended down. WBC count has remained within normal ranges. Unfortunately, his symptomology has not further narrowed the probable source of his sepsis, and is now further complicated by what I believe to be evidence of withdrawal. I did discuss with patient less likely causes of his fever. He denies recent travel, IV drug use, HIV exposure (he declines to have HIV screening when offered), artificial heart valves, history of rheumatic fever and recent dental work. Heart exam does not reveal any murmurs and so will hold off on obtaining an echocardiogram to evaluate for endocarditis at this time. However, if the patient remains febrile or blood cultures come positive will need to evaluate for this. Continue Rocephin through tomorrow. (2) Hyponatremia Is this a current diagnosis for this admission?: Yes Plan: Gradually improving; seems to have been secondary to dehydration. Sodium is slightly decreased today to 134.2. I had changed his IV fluids to lactated Ringer's yesterday as I was concerned that the sodium was being replaced to quickly. Will resume normal saline IV fluids. Continue to monitor BMP. (3) Atypical chest pain Is this a current diagnosis for this admission?: Yes Plan: Resolved. Patient with atypical chest pain in the setting of a viral syndrome. Although he does have risk factors for coronary artery syndrome (previous NM, obesity, tobacco use, hyperlipidemia) I do not suspect his pain to be cardiac in nature. Serial troponins were negative. He will remain on cardiac telemetry. Continue ASA and atorvastatin. (4) Dehydration Plan: Resolved. The patient received a total of 4 L IV fluid bolus followed by maintenance fluids. His blood pressure and heart rate have responded appropriately and he is feeling much better. He will continue to receive IV fluid resuscitation and be encouraged to drink clear fluids. He will be provided antiemetics as needed. (5) CAD (coronary artery disease) Is this a current diagnosis for this admission?: Yes Plan: Patient with known coronary artery disease and previous NM requiring stent placement. Lipid panel obtained this morning: LDL 57, HDL 13, triglycerides 331. The patient is known to have heavy alcohol intake may partially account for his hypertriglyceridemia. He has been placed on atorvastatin and a cardiac diet. Continue aspirin (6) Headache Is this a current diagnosis for this admission?: Yes Plan: Patient with frontal headache and symptomatology suggestive of sinusitis. Given the severity of his illness, a facial CT was obtained and ruled out sinus abscess. He continues to have headaches that were unresponsive to Tylenol or Toradol. Today the headaches are associated with diaphoresis, flushing, and hand tremor. I believe this to be a sign of withdrawal as the patient has admitted to regular/daily EtOH use. Will add as needed Ativan for withdrawal symptoms. (7) SIRS (systemic inflammatory response syndrome) Is this a current diagnosis for this admission?: Yes Plan: As above. (8) Viral syndrome Is this a current diagnosis for this admission?: Yes Plan: Influenza A/B negative. Remaining plan as above. (9) HLD (hyperlipidemia) Plan: As above. (10) Hypotension Is this a current diagnosis for this admission?: Yes Plan: Resolved. Secondary to dehydration. Blood pressure has responded to fluid bolus; will continue IVF and monitor. (11) Withdrawal syndrome Plan: The patient does freely admit to daily EtOH use; he states that he drinks 2 beers daily. Denies history of withdrawal symptoms. Additionally, he denies illicit drug use. He has had a persistent headache unresponsive to non-opiate pain medications. Today, he is noted to have flushing, diaphoresis, and a hand tremor. I believe these to be an indicator of possible EtOH withdrawal. As needed Ativan. - Time Time Spent with patient: 25-34 minutes Medications reviewed and adjusted accordingly: Yes - Inpatient Certification Based on my medical assessment, after consideration of the patient's comorbidities, presenting symptoms, or acuity I expect that the services needed warrant INPATIENT care.: Yes I certify that my determination is in accordance with my understanding of Medicare's requirements for reasonable and necessary INPATIENT services [42 CFR 412.3e].: Yes Medical Necessity: Need For IV Fluids
[2017-10-05] MEDS: LORAZEPAM INJ 2 MG/1 ML VIAL IV PRN ×2 (16:07→21:52)
[2017-10-05] MEDS: ATORVASTATIN CALCIUM 10 MG TABLET PO SCH (21:42)
[2017-10-06 04:44] LABS: HEMATOCRIT 35.9 % (37.9-51.0); HEMOGLOBIN 12.8 g/dL (13.5-17.0); HGB HCT DIFFERENCE 2.5; MEAN CORPUSCULAR HEMOGLOBIN 31.6 pg (27.0-33.4); MEAN CORPUSCULAR HGB CONC 35.5 g/dL (32.0-36.0); MEAN CORPUSCULAR VOLUME 89 fl (80-97); RED BLOOD COUNT 4.03 10^6/uL (4.35-5.55); RED CELL DISTRIBUTION WIDTH 12.8 % (11.5-14.0); WHITE BLOOD COUNT 7.5 10^3/uL (4.0-10.5)
[2017-10-06] MEDS: NORMAL SALINE 1000 ML 1,000 ML IV PRN (04:57)
[2017-10-06 05:02] LABS: ANION GAP 11 (5-19); BLOOD UREA NITROGEN 7 mg/dL (7-20); CALCIUM 8.6 mg/dL (8.4-10.2); CARBON DIOXIDE 24 mmol/L (22-30); CHLORIDE 104 mmol/L (98-107); CREATININE RESULT 0.79 mg/dL (0.52-1.25); GLUCOSE 100 mg/dL (75-110); POTASSIUM 4.1 mmol/L (3.6-5.0); SODIUM 138.8 mmol/L (137-145)
[2017-10-06 08:18] VITALS: BP 121/77
[2017-10-06] MEDS: CEFTRIAXONE 1 GM/D5W RTU 1 GM/50 ML RTUPB IV SCH (09:09)
[2017-10-06] MEDS: ASPIRIN 81 MG TABLET, ENT COATED PO SCH (09:09)
[2017-10-06] MEDS: PANTOPRAZOLE SODIUM 40 MG VIAL IV SCH (09:10)
[2017-10-06] MEDS: ENOXAPARIN SODIUM INJ 40 MG/0.4 ML DISP.SYRIN SUBCUT SCH (09:31)
--- NOTE | 2017-10-06 16:16 | PDOC DISCHARGE SUMMARY ---
General - Admit/Disc Date/PCP Admission Date/Primary Care Provider: 10/03/17 09:49 Discharge Date: 10/06/17 - Discharge Diagnosis (1) Sepsis Is this a current diagnosis for this admission?: Yes Summary: The patient was admitted with sepsis due to unspecified organism as evidenced by fever, tachycardia, hypotension, and thrombocytopenia. Initial workup was unrevealing, with a normal WBC count, and a constellation of symptoms primarily suggestive of a viral illness. Despite this, the severity of his acute illness prompted me to empirically start him on Rocephin. Blood cultures were obtained prior to initiating antibiotics and were negative for growth at 72 hours. He was aggressively resuscitated with IV fluids with resultant improvement in his blood pressures. His fevers initially as high as 103 have trended down and he remained afebrile for the last 24 hours. WBCs have remained within normal ranges. The patient's acute illness has resolved, his vital signs stable and laboratory evaluation this morning within normal values. He is now stable for discharge and will not require any additional antibiotic therapy. He is recommended to establish with a primary care provider and follow-up within 1-2 weeks. (2) Withdrawal syndrome Is this a current diagnosis for this admission?: Yes Summary: The patient freely admitted to daily EtOH use; stating that he drinks 2 beers daily. He denies a history of withdrawal symptoms. Additionally, he denies illicit drug use. He has had a persistent headache throughout his admission and was unresponsive to non-opiate pain medications. On day 3 of admission he was noted to have flushing, diaphoresis, and a hand tremor in addition to his headache. I believe these to be evidence of a hospital EtOH withdrawal and began as needed Ativan. Last night, he became acutely confused believing that the CODE BLUE box was a [employer] crayon dispenser and sent off the alarm. This morning, he is aware of his action and amused by his confusion, but continues to deny withdrawal symptoms. He id require 3 doses of Ativan for withdrawal symptoms. He is advised to discontinue drinking alcohol. (3) Hyponatremia Is this a current diagnosis for this admission?: Yes Summary: Resolved. Hyponatremia was secondary to dehydration which resolved with IV fluid resuscitation for sepsis protocol. (4) Atypical chest pain Is this a current diagnosis for this admission?: Yes Summary: Resolved. The patient presented with atypical chest pain in the setting of a viral syndrome. Although he has risk factors for coronary artery syndrome, I do not suspect his pain to be cardiac in nature. Serial troponins were negative. He was continued on ASA and atorvastatin. (5) Dehydration Summary: Resolved. The patient received a total of 4 L IV fluid bolus as part of the sepsis resuscitation protocol this was followed by maintanence fluids. His blood pressures and heart rate responded appropriately. (6) CAD (coronary artery disease) Is this a current diagnosis for this admission?: Yes Summary: Pt with known CAD and previous CA requiring a stent. Lipid panel was obtained and pt was subsequently started on atorvastatin. He was continued on ASA. (7) Headache Is this a current diagnosis for this admission?: Yes Summary: The patient complained of a persistent frontal headache and symptomatology suggestive sinusitis. Given the severity of his illness, and facial CT was obtained and ruled out a sinus abscess. He continues to have headaches that were unresponsive to Tylenol and Toradol. Yesterday it was noticed that his headaches were associated with diaphoresis, flushing and a hand tremor. I believe this to have been related to alcohol withdrawal. He was started on as needed Ativan with resolution of the headache. (8) Hypotension Is this a current diagnosis for this admission?: Yes Summary: Resolved; secondary to dehydration. Blood pressure responded appropriately to IVF resuscitation and is now stable. (10) SIRS (systemic inflammatory response syndrome) Is this a current diagnosis for this admission?: Yes Summary: As above. (11) Viral syndrome Is this a current diagnosis for this admission?: Yes Summary: Influenza A/B negative. Remaining course of illness as above. - Additional Information Resuscitation Status: Full Code Discharge Diet: As Tolerated, Other (Comments) Discharge Activity: Activity As Tolerated, Balance Activity w/Rest, Slowly Increase Activity Home Medications: Aspirin [Aspirin EC] 81 mg PO DAILY 10/03/17 Atorvastatin Calcium [Lipitor 10 mg Tablet] 10 mg PO QHS #30 tablet 10/06/17 Butalb/Acetaminophen/Caffeine [Fioricet 50-300-40 mg Capsule] 1 cap PO Q4 PRN # 20 cap 10/06/17 History of Present Illness History of Present Illness: SAMI ROGERS is a 51 year old male with a past medical history significant for CA with stenting 3 years ago, hyperlipidemia, tobacco and alcohol dependence who presents to the emergency department with a report of viral syndrome 6 days. Additionally, he complains of atypical chest pain that is intermittent and was noted to worsen with Nyquil, but does not appreciably worsen with activity or resolve with rest. He denies radiation of the pain and it is not associated with sommers, dizziness, dyspnea, diaphoresis or nausea. He does report a constellation of symptoms including fever (TMax 104), malaise, fatigue, anorexia, nausea, post-tussive emesis, and muscle cramps. He has tried [id number] cold remedies without improvement in symptoms. He denies sick contacts and has not traveled recently. He does not get the flu vaccine. Initial evaluation in the emergency department is essentially unremarkable except for hyponatremia, mild tachycardia and hypotension (90s/60s) that has been responsive to IV fluids. He is referred to the hospitalist service for admission under sepsis protocols. Physical Exam Vital Signs: Temp Pulse Resp BP Pulse Ox 98.3 F 87 16 121/77 94 10/06/17 10:07 10/06/17 10:07 10/06/17 10:07 10/06/17 07:14 10/06/17 10:07 Intake & Output 10/05/17 10/06/17 10/07/17 06:59 06:59 06:59 Intake Total 1670 3358 Balance 1670 3358 Weight 89 kg General appearance: PRESENT: no acute distress, well-developed, well-nourished Head exam: PRESENT: atraumatic, normocephalic Eye exam: PRESENT: conjunctiva pink, EOMI, PERRLA. ABSENT: scleral icterus Ear exam: PRESENT: normal external ear exam Mouth exam: PRESENT: moist, tongue midline Neck exam: ABSENT: carotid bruit, JVD, lymphadenopathy, thyromegaly Respiratory exam: PRESENT: clear to auscultation ari. ABSENT: rales, rhonchi, wheezes Cardiovascular exam: PRESENT: RRR. ABSENT: diastolic murmur, rubs, systolic murmur Pulses: PRESENT: normal dorsalis pedis pul Vascular exam: PRESENT: normal capillary refill GI/Abdominal exam: PRESENT: normal bowel sounds, soft. ABSENT: distended, guarding, mass, organolmegaly, rebound, tenderness Rectal exam: PRESENT: deferred Extremities exam: PRESENT: full ROM. ABSENT: calf tenderness, clubbing, pedal edema Neurological exam: PRESENT: alert, awake, oriented to person, oriented to place , oriented to time, oriented to situation, CN II-XII grossly intact. ABSENT: motor sensory deficit Psychiatric exam: PRESENT: appropriate affect, normal mood. ABSENT: homicidal ideation, suicidal ideation Skin exam: PRESENT: dry, intact, warm. ABSENT: cyanosis, rash Results Laboratory Results: 10/06/17 04:11 10/06/17 04:11 10/06/17 10/06/17 04:11 04:11 WBC 7.5 RBC 4.03 L Hgb 12.8 L Hct 35.9 L MCV 89 MCH 31.6 MCHC 35.5 RDW 12.8 Plt Count 192 Sodium 138.8 Potassium 4.1 Chloride 104 Carbon Dioxide 24 Anion Gap 11 BUN 7 Creatinine 0.79 Est GFR ( Amer) > 60 Est GFR (Non-Af Amer) > 60 Glucose 100 Calcium 8.6 10/03/17 10/03/17 10/04/17 13:57 20:05 02:10 Troponin I < 0.012 < 0.012 < 0.012 Impressions: Chest X-Ray 10/03/17 05:58 IMPRESSION: No acute cardiopulmonary findings. 2010 [employer]- All Rights Reserved Abdomen/Pelvis CTA 10/03/17 08:23 IMPRESSION: NO ABDOMINAL AORTIC ANEURYSM, DISSECTION OR SIGNIFICANT STENOSIS. NO SIGNIFICANT FINDINGS IN THE ABDOMEN OR PELVIS. Chest/Abdomen CTA 10/03/17 08:23 IMPRESSION: NORMAL CTA OF THE CHEST. NO THORACIC AORTIC ANEURYSM OR DISSECTION. Facial Bones CT 10/04/17 00:00 IMPRESSION: NO ACUTE FINDINGS. Qualifiers PATEINT BEING DISCHARGED WITH ANY OF THE FOLLOWING DIAGNOSIS?: No Plan Discharge Plan: Discharge to home with self-care. Time Spent: Less than 30 Minutes
== END 2017-10-06 10:45 | disposition home or self-care (01) | DRG 872 ==
LOC: ER 03:26 → EH 09:49 → 3N 10-04 18:51
PROVIDERS: ADMIT Family Medicine; ATTEND Family Medicine
PROC: 3E0F73Z Introduction of Anti-inflammatory into Respiratory Tract, Via Natural or Artificial Opening (ICD-10-PCS; principal; 2017-10-04)
PROC: 3E0234Z Introduction of Serum, Toxoid and Vaccine into Muscle, Percutaneous Approach (ICD-10-PCS; 2017-10-06)
DX: A41.89 Other specified sepsis (principal); E87.1 Hypo-osmolality and hyponatremia; F10.239 Alcohol dependence with withdrawal, unspecified; E86.0 Dehydration; I25.10 Atherosclerotic heart disease of native coronary artery without angina pectoris; J32.9 Chronic sinusitis, unspecified; I95.9 Hypotension, unspecified; B34.9 Viral infection, unspecified; E78.5 Hyperlipidemia, unspecified; F17.210 Nicotine dependence, cigarettes, uncomplicated; I25.2 Old myocardial infarction; Z23 Encounter for immunization; Z95.5 Presence of coronary angioplasty implant and graft; Z79.82 Long term (current) use of aspirin
CPT/HCPCS: 36415; 70486; 71020; 71275; 74174; 80048; 80061; 81001; 83605; 83735; 84484; 85025; 85027; 87040; 87070; 87086; 87205; 87804; 90686; 93005; 93010; 96361; 96365; 96375; 99291; J0696; J1650; J1885; J2060; J2405; J3370; J7030; J7120; S0164

== ENCOUNTER → 2017-10-11 | Outpatient (CLI) | payer OTHER ==
[2017-10-11 12:22] LABS: ANION GAP 14 (5-19); BLOOD UREA NITROGEN 12 mg/dL (7-20); CALCIUM 9.7 mg/dL (8.4-10.2); CARBON DIOXIDE 25 mmol/L (22-30); CHLORIDE 104 mmol/L (98-107); CREATININE RESULT 0.92 mg/dL (0.52-1.25); GLUCOSE 100 mg/dL (75-110); SODIUM 143.3 mmol/L (137-145)
== END ==
LOC: CCC 11:05
DX: R51 Headache (principal)
CPT/HCPCS: 36415; 80048; 82607; 84425; 86592

== ENCOUNTER → 2017-10-11 | Outpatient (CLI) | payer OTHER ==
--- NOTE | 2017-10-11 11:06 | RADIOLOGY REPORT (SQ) ---
EXAM DESCRIPTION: CT HEAD WITHOUT COMPLETED DATE/TIME: 10/11/2017 10:50 am REASON FOR STUDY: MEMORY LOSS/HEADACHE R51 HEADACHE COMPARISON: None. TECHNIQUE: Axial images acquired through the brain without intravenous contrast. Images reviewed wi th bone, brain and subdural windows. Images stored on PACS. All CT scanners at this facility use dose modulation, iterative reconstruction, and/or weight based d osing when appropriate to reduce radiation dose to as low as reasonably achievable (ALARA). [facility]: Dose Right [facility]: CareDose [facility]: Dose Right [facility]: Teradose 4D [facility]: [employer] RADIATION DOSE: CT Rad equipment meets quality standard of care and radiation dose reduction techniq ues were employed. CTDIvol: 49.0 mGy. DLP: 881 mGy-cm. mGy. LIMITATIONS: None. FINDINGS: VENTRICLES: Normal size and contour. CEREBRUM: No masses. No hemorrhage. No midline shift. No evidence for acute infarction. Normal gra y/white matter differentiation. No areas of low density in the white matter. CEREBELLUM: No masses. No hemorrhage. No alteration of density. No evidence for acute infarction. EXTRAAXIAL SPACES: No fluid collections. No masses. ORBITS AND GLOBE: No intra- or extraconal masses. Normal contour of globe without masses. CALVARIUM: No fracture. PARANASAL SINUSES: No fluid or mucosal thickening. SOFT TISSUES: No mass or hematoma. OTHER: No other significant finding. IMPRESSION: NORMAL BRAIN CT WITHOUT CONTRAST. EVIDENCE OF ACUTE STROKE: NO. COMMENT: Quality ID # [id number]: Final reports with documentation of one or more dose reduction techniques (e.g., Automated exposure control, adjustment of the mA and/or kV according to patient size, use of iterative reconstruction technique) TECHNICAL DOCUMENTATION: JOB ID: [id number] [employer]- All Rights Reserved
== END ==
LOC: RAD 10:23
DX: R41.3 Other amnesia (principal); R51 Headache
CPT/HCPCS: 70450

== ENCOUNTER 2019-07-29 15:54 | Emergency (ER) | payer SELFPAY ==
[2019-07-29] MEDS ORDERED: ACETAMINOPHEN 325 MG TABLET PO ONE (16:44)
[2019-07-29] MEDS ORDERED: MECLIZINE HCL 25 MG TABLET PO ONE (16:44)
--- NOTE | 2019-07-29 16:44 | ER Document Report ---
ED Medical Screen (RME) - General Stated Complaint: HEADACHE/BLURRY VISION Time Seen by Provider: 07/29/19 16:38 Primary Care Provider: [facility] [Primary Care Provider] - Follow up as needed TRAVEL OUTSIDE OF THE [place] IN LAST 30 DAYS: No - HPI Notes: 07/29/19 16:42 Patient is a 53-year-old male who presents complaining of a severe global headache is been present for a couple days and not responding to ffkm-yqe-glhoqck medicines. Patient states he has had headaches in the past, but not to this longevity or extent. He does have some intermittent dizziness associated. Patient states that he has had nasal congestion checked last week as well. He also had a cough this past week which went away on Monday. He has not had any chest pain, shortness of breath, or dyspnea on exertion. I have treated and performed a rapid initial assessment of this patient. A comprehensive ED assessment and evaluation of the patient, analysis of test results and completion of medical decision making process will be conducted by additional ED providers. PHYSICAL EXAMINATION: GENERAL: Well-appearing, well-nourished and in no acute distress. A&Ox4. Answers questions appropriately. Neuro: Cranial nerves grossly intact. NIH 0, GCS 15. Eyes: PERRLA, EOMI bilaterally, no nystagmus Lung: CTAB Heart: RRR - Related Data Allergies/Adverse Reactions: No Known Allergies Allergy (Verified 10/03/17 08:21) Past Medical History - Past Medical History Cardiac Medical History: Reports: Hx Coronary Artery Disease, Hx Heart Attack - 3 years ago, Hx Hypercholesterolemia Renal/ Medical History: Denies: Hx Peritoneal Dialysis Past Surgical History: Reports: Hx Cardiac Catheterization, Hx Cardiac Surgery - stent placement, Hx Coronary Stent - Immunizations Hx Diphtheria, Pertussis, Tetanus Vaccination: Yes History of Influenza Vaccine for 07/2017 - 12/2017 Season: No Physical Exam - Vital signs Vitals: Temp Pulse Resp BP Pulse Ox 97.9 F 95 20 157/87 H 93 07/29/19 16:07 07/29/19 16:07 07/29/19 16:07/29/19 16:07 07/29/19 16:07 Course - Vital Signs Vital signs: Temp Pulse Resp BP Pulse Ox 97.9 F 95 20 157/87 H 93 07/29/19 16:07 07/29/19 16:07 07/29/19 16:07 07/29/19 16:07 07/29/19 16:07 Doctor's Discharge - Discharge Referrals: [facility] [Primary [facility]] - Follow up as needed
[2019-07-29 17:10] LABS: ABSOLUTE BASOPHILS # (AUTO) 0.1 10^3/uL (0.0-0.2); ABSOLUTE EOSINOPHILS # (AUTO) 0.3 10^3/uL (0.0-0.6); ABSOLUTE LYMPHOCYTES (AUTO) 2.1 10^3/uL (0.5-4.7); ABSOLUTE NEUT (AUTO) 6.6 10^3/uL (1.7-8.2); BASOPHILS % (AUTO) 0.8 % (0-2); EOSINOPHILS % (AUTO) 2.9 % (0-6); HEMATOCRIT 48.6 % (37.9-51.0); HEMOGLOBIN 16.7 g/dL (13.5-17.0); LYMPHOCYTES % (AUTO) 20.9 % (13-45); MEAN CORPUSCULAR HEMOGLOBIN 31.2 pg (27.0-33.4); MEAN CORPUSCULAR HGB CONC 34.3 g/dL (32.0-36.0); MEAN CORPUSCULAR VOLUME 91 fl (80-97); MONOCYTES % (AUTO) 9.6 % (3-13); PLATELET COUNT 223 10^3/uL (150-450); RED BLOOD COUNT 5.35 10^6/uL (4.35-5.55); RED CELL DISTRIBUTION WIDTH 13.1 % (11.5-14.0); SEGMENTED NEUTROPHILS % (AUTO) 65.8 % (42-78); TOTAL CELLS COUNTED % (AUTO) 100 %; WHITE BLOOD COUNT 10.1 10^3/uL (4.0-10.5)
[2019-07-29 17:32] LABS: ALKALINE PHOSPHATASE 75 U/L (38-126); ANION GAP 9 (5-19); ASPARTATE AMINO TRANSFERASE 22 U/L (17-59); BILIRUBIN,DIRECT 0.1 mg/dL (0.0-0.4); BILIRUBIN,TOTAL 0.4 mg/dL (0.2-1.3); BLOOD UREA NITROGEN 14 mg/dL (7-20); CALCIUM 9.8 mg/dL (8.4-10.2); CARBON DIOXIDE 24 mmol/L (22-30); CHLORIDE 107 mmol/L (98-107); GLUCOSE 118 mg/dL (75-110); POTASSIUM 4.2 mmol/L (3.6-5.0); TOTAL PROTEIN 6.7 g/dL (6.3-8.2)
--- NOTE | 2019-07-29 18:25 | RADIOLOGY REPORT (SQ) ---
EXAM DESCRIPTION: CT HEAD WITHOUT COMPLETED DATE/TIME: 07/29/2019 5:59 pm REASON FOR STUDY: ANDRADE/dizzy COMPARISON: 10/11/2017 TECHNIQUE: Axial images acquired through the brain without intravenous contrast. Images reviewed wi th bone, brain and subdural windows. Additional sagittal and coronal reconstructions were generated. Images stored on PACS. All CT scanners at this facility use dose modulation, iterative reconstruction, and/or weight based d osing when appropriate to reduce radiation dose to as low as reasonably achievable (ALARA). [facility]: Dose Right [facility]: CareDose [facility]: Dose Right [facility]: Teradose 4D [facility]: [employer] RADIATION DOSE: CT Rad equipment meets quality standard of care and radiation dose reduction techniq ues were employed. CTDIvol: 53.2 mGy. DLP: 1044 mGy-cm. mGy. LIMITATIONS: None. FINDINGS: VENTRICLES: Normal size and contour. CEREBRUM: No masses. No hemorrhage. No midline shift. No evidence for acute infarction. Normal gra y/white matter differentiation. No areas of low density in the white matter. CEREBELLUM: No masses. No hemorrhage. No alteration of density. No evidence for acute infarction. EXTRAAXIAL SPACES: No fluid collections. No masses. ORBITS AND GLOBE: No intra- or extraconal masses. Normal contour of globe without masses. CALVARIUM: No fracture. PARANASAL SINUSES: No fluid or mucosal thickening. SOFT TISSUES: No mass or hematoma. OTHER: No other significant finding. IMPRESSION: NORMAL BRAIN CT WITHOUT CONTRAST. EVIDENCE OF ACUTE STROKE: NO. COMMENT: Quality ID # [id number]: Final reports with documentation of one or more dose reduction techniques (e.g., Automated exposure control, adjustment of the mA and/or kV according to patient size, use of iterative reconstruction technique) TECHNICAL DOCUMENTATION: JOB ID: [id number] [employer]- All Rights Reserved Reading location - IP/workstation name: [email or web address]
[2019-07-29] MEDS ORDERED: NORMAL SALINE 1000 ML 1,000 ML IV ONE (18:26)
[2019-07-29] MEDS ORDERED: METOCLOPRAMIDE HCL INJ/PF 10 MG/2 ML SDV IV ONE (18:27)
[2019-07-29] MEDS ORDERED: KETOROLAC TROMETHAMINE 60 MG/2 ML SDV IV ONE (18:27)
[2019-07-29] MEDS ORDERED: DIPHENHYDRAMINE HCL 50 MG/ML VIAL IV ONE (18:28)
--- NOTE | 2019-07-29 19:00 | ER Document Report ---
ED Headache - General Chief Complaint: Headache >24 hrs old Stated Complaint: HEADACHE/BLURRY VISION Time Seen by Provider: 07/29/19 16:38 Primary Care Provider: [facility] [Primary Care Provider] - Follow up as needed Notes: 53-year-old male presents the emergency department with severe global headache t hat has been present for a couple of days not responding to Tylenol and Motrin. Patient does have history of headaches but never this severe or this long. Patient has intermittent dizziness but denies any vision changes. Patient has had a mild cough for a couple of days last week and some sinus congestion but that is resolved. Denies any chest pain or shortness of breath, denies dyspnea on exertion, denies any acute limb weakness or paresthesias. No other complaints TRAVEL OUTSIDE OF THE [place] IN LAST 30 DAYS: No - Related Data Allergies/Adverse Reactions: No Known Allergies Allergy (Verified 10/03/17 08:21) Past Medical History - Social History Smoking Status: Current Every Day Smoker Family History: Reviewed & Not Pertinent Patient has suicidal ideation: No Patient has homicidal ideation: No - Past Medical History Cardiac Medical History: Reports: Hx Coronary Artery Disease, Hx Heart Attack - 3 years ago, Hx Hypercholesterolemia Renal/ Medical History: Denies: Hx Peritoneal Dialysis Past Surgical History: Reports: Hx Cardiac Catheterization, Hx Cardiac Surgery - stent placement, Hx Coronary Stent - Immunizations Hx Diphtheria, Pertussis, Tetanus Vaccination: Yes Review of Systems - Review of Systems Constitutional: See HPI EENT: No symptoms reported Cardiovascular: See HPI Respiratory: See HPI Gastrointestinal: See HPI Genitourinary: No symptoms reported Male Genitourinary: No symptoms reported Musculoskeletal: No symptoms reported Skin: No symptoms reported Hematologic/Lymphatic: No symptoms reported Neurological/Psychological: See HPI Physical Exam - Vital signs Vitals: Temp Pulse Resp BP Pulse Ox 97.9 F 95 20 157/87 H 93 07/29/19 16:07 07/29/19 16:07 07/29/19 16:07 07/29/19 16:07 07/29/19 16:07 - Notes Notes: PHYSICAL EXAMINATION: Reviewed vital signs and charting by RN GENERAL: Alert, interacts well. No acute distress. HEAD: Normocephalic, atraumatic. EYES: Pupils equal and round. Extraocular movements intact. ENT: Oral mucosa moist, tongue midline. NECK: Full range of motion. Trachea midline. LUNGS: Clear to auscultation bilaterally, no wheezes, rales, or rhonchi. No respiratory distress. HEART: Regular rate and rhythm. No murmur ABDOMEN: soft, non-tender. No distention. Bowel sounds present EXTREMITIES: Moves all 4 extremities spontaneously. No edema, No cyanosis. 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 SKIN: Warm, dry, normal turgor. No rashes or lesions noted. Course - Re-evaluation Re-evalutation: 07/29/19 18:56 Overall well-appearing in no acute distress. Presentation of a headache that appears to be most consistent with tension versus migrainous type headache. Headache was not maximal in onset, patient has no focal neurologic deficits, no nuchal rigidity, vital signs within normal limits, and patient is overall well in appearance. Based on clinical history and examination I do not suspect an acute subarachnoid hemorrhage, dural venous sinus thrombosis, acute meningitis, or intercranial mass. Will proceed with headache cocktail and reassess. Patient with a normal neurologic exam and plan is to give him a combination of Toradol 15 mg IV, Benadryl 25 mg IV, Reglan 10 mg IV. 07/29/19 18:57 CT head ordered in triage and was negative for any intracranial bleed, mass- effect, midline shift. Plan to reassess patient after he receives medications and will discharge home. 07/29/19 18:58 - Vital Signs Vital signs: Temp Pulse Resp BP Pulse Ox 97.9 F 95 20 157/87 H 93 07/29/19 16:07 07/29/19 16:07 07/29/19 16:07 07/29/19 16:07 07/29/19 16:07 - Laboratory Result Diagrams: 07/29/19 16:52 07/29/19 16:52 Laboratory results interpreted by me: 07/29/19 16:52 Glucose 118 H Discharge - Discharge Clinical Impression: Headache Qualifiers: Headache type: unspecified Headache chronicity pattern: acute headache Intractability: not intractable Qualified Code(s): R51 - Headache Condition: Good Disposition: HOME, SELF-CARE Additional Instructions: You have been seen in the Emergency Department (ED) for a headache. Please use Tylenol (acetaminophen) or Motrin (ibuprofen) as needed for symptoms, but only as written on the box. As we have discussed, please follow up with your primary care doctor as soon as possible regarding today's ED visit and your headache symptoms. Call your doctor or return to the ED if you have a worsening headache, sudden and severe headache, confusion, slurred speech, facial droop, weakness or numbness in any arm or leg, extreme fatigue, or other symptoms that concern you. Forms: Return to Work Referrals: [facility] [Primary Care Provider] - Follow up as needed
[2019-07-29 19:23] VITALS: BP 95/68
== END 2019-07-29 19:23 | disposition home or self-care (01) ==
LOC: ER 15:54
DX: R51 Headache (principal); H53.8 Other visual disturbances; F17.200 Nicotine dependence, unspecified, uncomplicated; I25.10 Atherosclerotic heart disease of native coronary artery without angina pectoris; E78.00 Pure hypercholesterolemia, unspecified; I25.2 Old myocardial infarction
CPT/HCPCS: 36415; 85025; 80053; 70450; J1200; J1885; J2765; 96374; 96375; 99284